=== PATIENT | male | born 1955 | race Caucasian/White ===

== ENCOUNTER 2024-11-30 16:36 | Inpatient (IN) | payer MEDICARE ==
[2024-11-30] MEDS ORDERED: Albuterol 2.5 MG (0.5 mL) NEB ONE (17:14)
[2024-11-30] MEDS ORDERED: Albuterol 2.5 MG (3 mL) NEB ONE (17:14)
[2024-11-30 17:39] LABS: Actual Bicarbonate (HCO3v) 27.1 mEq/L (22-28); Analyzer IN Cardio ER; pH (venous) 7.164 (7.32-7.43)
[2024-11-30 17:40] LABS: Base Excess -3.5 mEq/L (-2.0 to +3.0); Calcium, Ionized (venous) 1.04 mmol/L (1.16-1.32); Chloride (VBG) 102 mmol/L (98-106); Hematocrit-VBG 42 % (42.0-52.0); Hemoglobin (Hb) 14.4 g/dL (12.6-17.4); Potassium (VBG) 4.28 mmol/L (3.70-5.30); Sodium 138 mmol/L (133-146)
[2024-11-30] MEDS ORDERED: Acetaminophen 325 MG TAB PO PRN (19:24)
[2024-11-30] MEDS ORDERED: Enoxaparin 40 MG (0.4 mL) SYRINGE SC SCH (19:24)
[2024-11-30] MEDS: Metoprolol Tartrate 5 MG (5 mL) VIAL IVP SCH (21:17)
[2024-11-30] MEDS ORDERED: Azithromycin 500 MG VIAL ONE (21:22)
[2024-11-30] MEDS ORDERED: Pantoprazole 40 MG VIAL ONE (21:22)
[2024-11-30] MEDS: Azithromycin 500 MG in Sodium Chloride 0.9% 250 ML 250 ML IVPB SCH (21:34)
[2024-11-30] MEDS: Pantoprazole 40 MG VIAL IVP SCH (21:34)
[2024-11-30] MEDS ORDERED: Ipratropium/Albuterol 3 ML NEB NEB PRN (23:14)
[2024-11-30] MEDS ORDERED: Ondansetron PF 4 MG/2 ML Vial IVP PRN (23:16)
[2024-11-30] MEDS ORDERED: Ondansetron ODT 4 MG TAB PO PRN (23:16)
[2024-11-30] MEDS ORDERED: Dextrose 5% in Water 1,000 ML IV PRN (23:35)
[2024-11-30] MEDS ORDERED: Glucagon 1 MG/ML KIT IM PRN (23:35)
[2024-11-30] MEDS ORDERED: Dextrose 50% Abboject 50 ML SYRINGE SLOW IVP PRN (23:35)
[2024-12-01] MEDS: Enoxaparin 120 MG/0.8 ML SYRINGE SC SCH ×2 (00:49→09:03)
[2024-12-01] MEDS: methylPREDNISolone Sod Succ 40 MG VIAL IVP SCH (00:50)
[2024-12-01] MEDS: Ipratropium/Albuterol 3 ML NEB NEB SCH (01:12)
[2024-12-01] MEDS: Acetaminophen 325 MG TAB PO PRN (02:19)
[2024-12-01] MEDS ORDERED: Metoprolol Tartrate 5 MG (5 mL) VIAL IVP PRN (02:29)
[2024-12-01] MEDS ORDERED: Ipratropium/Albuterol 3 ML NEB NEB SCH (02:30)
[2024-12-01] MEDS ORDERED: HYDROcodone/Acetaminophen 5/325 mg Tablet PO PRN (02:32)
[2024-12-01] MEDS: Gabapentin 400 MG CAP PO SCH ×2 (02:41→09:03)
[2024-12-01] MEDS: Ketorolac Tromethamine 30 MG (1 mL) VIAL IVP SCH (02:42)
[2024-12-01] MEDS: Sodium Chloride 0.9% 500 ML IV SCH (02:43)
[2024-12-01 02:52] VITALS: BMI 34.0
[2024-12-01 04:25] LABS: #Basophils Less than 0.03 10x3/uL (0.0-0.2); #Eosinophils Less than 0.03 10x3/uL (0.0-0.7); %Basophils 0.1 % (0.0-1.0); %Lymphocytes 5.2 % (21.0-51.0); %Monocytes 1.5 % (0.0-10.0); %Neutrophils 92.9 % (42.0-75.0); Hematocrit 35.6 % (42.0-52.0); Hemoglobin 10.6 g/dL (14.0-18.0); Mean Corpuscular HGB CONC 29.8 g/dL (32.0-36.0); Mean Corpuscular Hemoglobin 26.3 pg (27.0-31.0); Mean Corpuscular Volume 88.3 fL (78.0-98.0); Mean Platelet Volume 9.5 fL (7.4-10.4); Platelet Count 162 10x3/uL (130-400); RBC Distribution Width 16.1 % (11.5-14.5); Red Blood Cell (RBC) Count 4.03 mill/uL (4.70-6.10)
[2024-12-01 04:45] LABS: Anion Gap 16 mmol/L (10-20); BUN (Urea Nitrogen) 40 mg/dL (8.4-25.7); Calc. Creatinine Clearance 50 mL/min (70-130); Carbon Dioxide 24 mmol/L (23-31); Chloride 104 mmol/L (98-107); Estimated GFR 31; Glucose 214 mg/dL (80-115); Magnesium 2.2 mg/dL (1.6-2.6); Potassium 4.5 mmol/L (3.5-5.1); Sodium 139 mmol/L (136-145)
[2024-12-01] MEDS: Mometasone 200 MCG/Formoterol 5 MCG 120 PUFF INHALER INH SCH (07:39)
[2024-12-01] MEDS: Pantoprazole 40 MG VIAL IVP SCH (09:04)
[2024-12-01] MEDS: cefTRIAXone (ROCEPHIN) 2 GM VIAL ONE (11:37)
[2024-12-01] MEDS: cefTRIAXone\\ROCEPHIN 2 GM in Sodium Chloride 0.9% 100 ML IVPB SCH (11:38)
[2024-12-01] MEDS: dilTIAZem 30 MG TAB PO SCH (12:25)
[2024-12-01] MEDS: Lactated Ringer's 500 ML IV SCH (12:26)
[2024-12-01] MEDS ORDERED: dilTIAZem 30 MG TAB PO SCH (12:30)
[2024-12-01] MEDS: dilTIAZem 25 MG/5 ML VIAL SLOW IVP SCH (14:59)
[2024-12-01] MEDS: traMADol HCl 50 MG TAB PO PRN (15:08)
[2024-12-01] MEDS: dilTIAZem 125 MG in Sodium Chloride 0.9% 100 ML IVPB SCH (16:55)
[2024-12-01] MEDS: Glimepiride 1 MG TAB PO SCH (20:11)
[2024-12-01] MEDS: Pantoprazole 40 MG DR.TAB PO SCH (20:12)
[2024-12-01] MEDS: Azithromycin 250 MG TAB PO SCH (20:12)
[2024-12-02 04:10] LABS: #Basophils Less than 0.03 10x3/uL (0.0-0.2); #Eosinophils Less than 0.03 10x3/uL (0.0-0.7); %Basophils 0.1 % (0.0-1.0); %Lymphocytes 4.6 % (21.0-51.0); %Monocytes 2.8 % (0.0-10.0); %Neutrophils 91.8 % (42.0-75.0); Hematocrit 34.1 % (42.0-52.0); Hemoglobin 10.4 g/dL (14.0-18.0); Mean Corpuscular HGB CONC 30.5 g/dL (32.0-36.0); Mean Corpuscular Hemoglobin 26.4 pg (27.0-31.0); Mean Corpuscular Volume 86.5 fL (78.0-98.0); Mean Platelet Volume 9.8 fL (7.4-10.4); Platelet Count 191 10x3/uL (130-400); RBC Distribution Width 16.3 % (11.5-14.5); Red Blood Cell (RBC) Count 3.94 mill/uL (4.70-6.10)
[2024-12-02 04:28] LABS: Anion Gap 16 mmol/L (10-20); BUN (Urea Nitrogen) 50 mg/dL (8.4-25.7); Calc. Creatinine Clearance 59 mL/min (70-130); Calcium 8.2 mg/dL (7.8-10.44); Carbon Dioxide 21 mmol/L (23-31); Cardiac Risk 5.1 (Less than 4.5); Chloride 107 mmol/L (98-107); Cholesterol 118 mg/dl (< 200 Desired); Estimated GFR 38; Glucose 129 mg/dL (80-115); HDL Cholesterol 23 mg/dL (>60 Neg Risk); LDL Cholesterol, Calculated 73 mg/dL; Potassium 4.5 mmol/L (3.5-5.1); Sodium 139 mmol/L (136-145); Triglycerides 108 mg/dL (Less than 150)
[2024-12-02] MEDS: Insulin Lispro 100 UNIT/ML 10 ML VIAL SC PRN (05:42)
[2024-12-02] MEDS: Atorvastatin Calcium 40 MG TAB PO SCH (08:58)
[2024-12-02] MEDS: Enoxaparin 120 MG/0.8 ML SYRINGE SC SCH (08:59)
[2024-12-02] MEDS: dilTIAZem 125 MG in Sodium Chloride 0.9% 100 ML IVPB SCH (10:06)
[2024-12-02] MEDS ORDERED: Digoxin 0.5 MG/2 ML AMP SLOW IVP SCH ×2 (14:45→20:00)
[2024-12-02] MEDS: dilTIAZem 25 MG/5 ML VIAL SLOW IVP SCH (14:45)
[2024-12-02] MEDS: Digoxin 0.5 MG/2 ML AMP SLOW IVP SCH (15:15)
[2024-12-02] MEDS: Dronedarone HCl 400 MG TAB PO SCH (15:15)
[2024-12-02] MEDS: Acetaminophen 500 MG TAB PO SCH (20:39)
[2024-12-02] MEDS: rOPINIRole HCl 0.5 MG TAB PO SCH (20:40)
[2024-12-03] MEDS: dilTIAZem 125 MG in Sodium Chloride 0.9% 100 ML IVPB SCH (03:26)
[2024-12-03 03:59] LABS: #Basophils Less than 0.03 10x3/uL (0.0-0.2); #Eosinophils Less than 0.03 10x3/uL (0.0-0.7); %Basophils 0.1 % (0.0-1.0); %Lymphocytes 4.7 % (21.0-51.0); %Monocytes 3.1 % (0.0-10.0); %Neutrophils 91.5 % (42.0-75.0); Hematocrit 34.6 % (42.0-52.0); Hemoglobin 10.5 g/dL (14.0-18.0); Mean Corpuscular HGB CONC 30.3 g/dL (32.0-36.0); Mean Corpuscular Hemoglobin 25.9 pg (27.0-31.0); Mean Corpuscular Volume 85.4 fL (78.0-98.0); Mean Platelet Volume 9.4 fL (7.4-10.4); Platelet Count 221 10x3/uL (130-400); RBC Distribution Width 16.3 % (11.5-14.5); Red Blood Cell (RBC) Count 4.05 mill/uL (4.70-6.10)
[2024-12-03 04:20] LABS: Anion Gap 13 mmol/L (10-20); BUN (Urea Nitrogen) 47 mg/dL (8.4-25.7); Calc. Creatinine Clearance 65 mL/min (70-130); Calcium 8.1 mg/dL (7.8-10.44); Carbon Dioxide 26 mmol/L (23-31); Chloride 107 mmol/L (98-107); Estimated GFR 42; Glucose 130 mg/dL (80-115); Potassium 4.2 mmol/L (3.5-5.1); Sodium 142 mmol/L (136-145)
[2024-12-03] MEDS ORDERED: methylPREDNISolone Sod Succ 40 MG VIAL IVP SCH (09:00)
[2024-12-03] MEDS: predniSONE 50 MG TAB PO SCH ×2 (09:59→11:04)
[2024-12-03] MEDS: Dronedarone HCl 400 MG TAB PO SCH (09:59)
[2024-12-03] MEDS: Cefdinir 300 MG CAP PO SCH (09:59)
[2024-12-03] MEDS: cefTRIAXone\\ROCEPHIN 2 GM in Sodium Chloride 0.9% 100 ML IVPB SCH (10:51)
[2024-12-03] MEDS: Apixaban 5 MG TAB PO SCH ×2 (11:04→20:42)
[2024-12-03] MEDS: predniSONE 20 MG TAB PO SCH (11:06)
[2024-12-03] MEDS ORDERED: dilTIAZem 125 MG in Sodium Chloride 0.9% 100 ML IVPB SCH (15:04)
[2024-12-04 04:15] LABS: #Basophils Less than 0.03 10x3/uL (0.0-0.2); #Eosinophils Less than 0.03 10x3/uL (0.0-0.7); %Basophils 0.1 % (0.0-1.0); %Lymphocytes 8.9 % (21.0-51.0); %Monocytes 5.5 % (0.0-10.0); %Neutrophils 84.7 % (42.0-75.0); Hematocrit 31.8 % (42.0-52.0); Hemoglobin 9.7 g/dL (14.0-18.0); Mean Corpuscular HGB CONC 30.5 g/dL (32.0-36.0); Mean Corpuscular Hemoglobin 26.3 pg (27.0-31.0); Mean Corpuscular Volume 86.2 fL (78.0-98.0); Platelet Count 192 10x3/uL (130-400); RBC Distribution Width 16.1 % (11.5-14.5); Red Blood Cell (RBC) Count 3.69 mill/uL (4.70-6.10)
[2024-12-04 04:40] LABS: Anion Gap 9 mmol/L (10-20); BUN (Urea Nitrogen) 49 mg/dL (8.4-25.7); Calc. Creatinine Clearance 69 mL/min (70-130); Calcium 7.8 mg/dL (7.8-10.44); Carbon Dioxide 28 mmol/L (23-31); Chloride 107 mmol/L (98-107); Estimated GFR 46; Glucose 98 mg/dL (80-115); Potassium 4.4 mmol/L (3.5-5.1); Sodium 140 mmol/L (136-145)
[2024-12-05] MEDS: traMADol HCl 50 MG TAB PO SCH (00:22)
[2024-12-05 04:41] LABS: Anion Gap 12 mmol/L (10-20); BUN (Urea Nitrogen) 46 mg/dL (8.4-25.7); Calc. Creatinine Clearance 73 mL/min (70-130); Calcium 7.9 mg/dL (7.8-10.44); Carbon Dioxide 27 mmol/L (23-31); Chloride 108 mmol/L (98-107); Estimated GFR 49; Glucose 105 mg/dL (80-115); Magnesium 1.9 mg/dL (1.6-2.6); Potassium 4.9 mmol/L (3.5-5.1); Sodium 142 mmol/L (136-145)
[2024-12-05] MEDS: Guaifenesin DM 100-10/5 ML UDCUP PO PRN (08:08)
[2024-12-05 16:16] VITALS: BMI 34.0
[2024-12-06] MEDS: Famotidine 20 MG TAB PO SCH (03:40)
[2024-12-06 04:34] LABS: BUN (Urea Nitrogen) 37 mg/dL (8.4-25.7); Calc. Creatinine Clearance 83 mL/min (70-130); Calcium 7.9 mg/dL (7.8-10.44); Carbon Dioxide 25 mmol/L (23-31); Estimated GFR 57; Glucose 98 mg/dL (80-115)
[2024-12-06 05:34] LABS: Anion Gap 13 mmol/L (10-20); Chloride 108 mmol/L (98-107); Potassium 4.1 mmol/L (3.5-5.1); Sodium 141 mmol/L (136-145)
[2024-12-06] MEDS ORDERED: Acetaminophen 325 MG TAB PO PRN (10:18)
[2024-12-06] MEDS: HYDROcodone/Acetaminophen 7.5/325 mg Tablet PO PRN (14:03)
[2024-12-06] MEDS: HYDROcodone/Acetaminophen 10/325 mg Tablet PO PRN (17:46)
[2024-12-06] MEDS: dilTIAZem 30 MG TAB PO SCH ×2 (19:51→20:50)
[2024-12-06] MEDS ORDERED: Famotidine 20 MG TAB PO SCH (21:00)
[2024-12-07 04:07] LABS: #Basophils Less than 0.03 10x3/uL (0.0-0.2); #Eosinophils Less than 0.03 10x3/uL (0.0-0.7); %Basophils 0.1 % (0.0-1.0); %Eosinophils 0.2 % (0.0-10.0); %Lymphocytes 14.2 % (21.0-51.0); %Monocytes 6.7 % (0.0-10.0); %Neutrophils 77.5 % (42.0-75.0); Hematocrit 32.9 % (42.0-52.0); Mean Corpuscular HGB CONC 30.4 g/dL (32.0-36.0); Mean Corpuscular Volume 85.5 fL (78.0-98.0); Mean Platelet Volume 9.7 fL (7.4-10.4); Platelet Count 205 10x3/uL (130-400); RBC Distribution Width 15.6 % (11.5-14.5); Red Blood Cell (RBC) Count 3.85 mill/uL (4.70-6.10)
[2024-12-07 04:30] LABS: Anion Gap 10 mmol/L (10-20); BUN (Urea Nitrogen) 32 mg/dL (8.4-25.7); Calc. Creatinine Clearance 79 mL/min (70-130); Calcium 7.7 mg/dL (7.8-10.44); Carbon Dioxide 27 mmol/L (23-31); Chloride 108 mmol/L (98-107); Estimated GFR 53; Glucose 108 mg/dL (80-115); Potassium 3.7 mmol/L (3.5-5.1); Sodium 141 mmol/L (136-145)
[2024-12-07] MEDS: Insulin Lispro 100 UNIT/ML 10 ML VIAL SC PRN (20:26)
[2024-12-08 04:53] LABS: Anion Gap 11 mmol/L (10-20); BUN (Urea Nitrogen) 33 mg/dL (8.4-25.7); Calc. Creatinine Clearance 90 mL/min (70-130); Calcium 7.8 mg/dL (7.8-10.44); Carbon Dioxide 26 mmol/L (23-31); Chloride 106 mmol/L (98-107); Estimated GFR 62; Glucose 86 mg/dL (80-115); Potassium 4.4 mmol/L (3.5-5.1); Sodium 139 mmol/L (136-145)
[2024-12-08] MEDS: Ipratropium/Albuterol 3 ML NEB NEB PRN (16:09)
[2024-12-09 04:59] LABS: Anion Gap 11 mmol/L (10-20); BUN (Urea Nitrogen) 29 mg/dL (8.4-25.7); Calc. Creatinine Clearance 76 mL/min (70-130); Calcium 7.8 mg/dL (7.8-10.44); Carbon Dioxide 27 mmol/L (23-31); Chloride 103 mmol/L (98-107); Estimated GFR 51; Glucose 83 mg/dL (80-115); Magnesium 1.6 mg/dL (1.6-2.6); Potassium 4.6 mmol/L (3.5-5.1); Sodium 136 mmol/L (136-145)
[2024-12-09] MEDS: Lidocaine 4% Patch TD SCH (08:23)
[2024-12-09] MEDS: Transdermal Patch Removal TOP SCH (21:30)
[2024-12-10] MEDS: Mag-Al 1200 mg/1200 mg/30 ML UDCUP PO SCH (02:53)
[2024-12-10 04:25] LABS: Anion Gap 12 mmol/L (10-20); BUN (Urea Nitrogen) 28 mg/dL (8.4-25.7); Calc. Creatinine Clearance 75 mL/min (70-130); Calcium 7.9 mg/dL (7.8-10.44); Carbon Dioxide 28 mmol/L (23-31); Chloride 106 mmol/L (98-107); Estimated GFR 50; Glucose 82 mg/dL (80-115); Potassium 4.8 mmol/L (3.5-5.1); Sodium 141 mmol/L (136-145)
[2024-12-10 08:21] VITALS: BP 131/72; TEMP 97.9
== END 2024-12-10 12:01 | disposition home or self-care (01) | DRG 189 ==
LOC: ERS 16:36 → ERHOLD 18:02 → PCU 12-01 00:22
PROVIDERS: ADMIT Student in an Organized Health Care Education/Training Program; ATTEND Family Medicine
PROC: 5A09357 Assistance with Respiratory Ventilation, Less than 24 Consecutive Hours, Continuous Positive Airway Pressure (ICD-10-PCS; principal; 2024-11-30)
DX: J96.21 Acute and chronic respiratory failure with hypoxia (principal); J44.1 Chronic obstructive pulmonary disease with (acute) exacerbation; I48.92 Unspecified atrial flutter; J96.22 Acute and chronic respiratory failure with hypercapnia; Z79.899 Other long term (current) drug therapy; Z88.8 Allergy status to other drugs, medicaments and biological substances; E11.40 Type 2 diabetes mellitus with diabetic neuropathy, unspecified; Z87.891 Personal history of nicotine dependence; Z91.148 Patient's other noncompliance with medication regimen for other reason; G25.81 Restless legs syndrome; I08.0 Rheumatic disorders of both mitral and aortic valves; G89.29 Other chronic pain; M54.9 Dorsalgia, unspecified; I12.9 Hypertensive chronic kidney disease with stage 1 through stage 4 chronic kidney disease, or unspecified chronic kidney disease; N18.9 Chronic kidney disease, unspecified; E11.22 Type 2 diabetes mellitus with diabetic chronic kidney disease; G47.33 Obstructive sleep apnea (adult) (pediatric); Z99.89 Dependence on other enabling machines and devices; Z79.02 Long term (current) use of antithrombotics/antiplatelets; I48.0 Paroxysmal atrial fibrillation; E78.00 Pure hypercholesterolemia, unspecified
CPT/HCPCS: 36415; 36416; 80048; 80061; 82805; 83735; 85025; 93005; 93010; 93306; 94640; 94660; J0456; J0696; J1160; J1650; J1815; J1885; J2470; J2919; J7050; J7120; J7512; J7611; J7620